=== PATIENT | female | born 1985 | race Caucasian/White ===

== ENCOUNTER 2023-12-05 20:47 | Outpatient (REF) | payer SELFPAY ==
[2023-12-10 15:08] LABS: Age Gdln ACOG Testing Note (.); HPV Aptima Negative (Negative); IGP, Aptima HPV, rfx 16/18,45 Note (.)
== END 2023-12-05 20:48 | disposition home or self-care (01) ==
LOC: LAB 20:47
PROVIDERS: PCP Obstetrics & Gynecology; Visit Provider Obstetrics & Gynecology
DX: Z01.419 Encounter for gynecological examination (general) (routine) without abnormal findings (principal)
CPT/HCPCS: 87624; G0145

== ENCOUNTER 2024-09-08 09:47 | Outpatient (OUT) | payer MEDICAID, SELFPAY ==
--- OUTSIDE RECORDS SUMMARY | 2024-09-08 10:03 | XMS_ITS | CCD ---
Author Organization [facility] Care Team Providers Care Demand Planning Analyst Name Role Phone PHYSICIAN, DEFAULT Unavailable Unavailable PHYSICIAN, DEFAULT Unavailable Unavailable Ozcan, Safinaz Tulin Unavailable Unavailable Deborah, Lacie Unavailable Unavailable UNKNOWN Unavailable Unavailable Ozcan, Safinaz Tulin Unavailable Unavailable Deborah, Lacie Unavailable Unavailable UNKNOWN Unavailable Unavailable Ozcan, Safinaz Tulin Unavailable Unavailable Deborah, Lacie Unavailable Unavailable UNKNOWN Unavailable Unavailable Lazebnik, Adrian Unavailable Unavailable Deborah, Lacie Unavailable Unavailable UNKNOWN Unavailable Unavailable Lazebnik, Adrian Unavailable Unavailable Deborah, Lacie Unavailable Unavailable UNKNOWN Unavailable Unavailable Lazebnik, Adrian Unavailable Unavailable Deborah, Lacie Unavailable Unavailable UNKNOWN Unavailable Unavailable ANA, DR KEENE Attending Unavailable REQUEST, NONE LISTED Primary Care Unavaila ble ANA, DR KEENE Admitting Unavailable West, Jassi Attending Unavailable West, Jassi Admitting Unavailable REQUEST, NONE LISTED Primary Care Unavaila ble Wil, Jassi Consulting Unavailable Wil, Jassi Attending Unavailable West, Jassi Admitting Unavailable REQUEST, DR NONE LISTED Primary Care Unavaila ble Wil, Jassi Consulting Unavailable ZIEBER, DR TERRANCE Lara Consulting Unavailable Wil, Jassi Attending Unavailable Wil, Jassi Admitting Unavailable West, Jassi Consulting Unavailable REQUEST, DR NONE LISTED Primary Care Unavaila ble Wil, Jassi Attending Unavailable West, Jassi Admitting Unavailable REQUEST, NONE LISTED Primary Care Unavaila ble Wil, Jassi Consulting Unavailable Wil, Jassi Attending Unavailable West, Jassi Admitting Unavailable West, Jassi Consulting Unavailable REQUEST, DR NONE LISTED Primary Care Unavaila ble Wil, Jassi Admitting Unavailable Wil, Jassi Consulting Unavailable REQUEST, DR NONE LISTED Primary Care Unavaila ble Wil, Jassi Attending Unavailable West, Jassi Admitting Unavailable West, Jassi Consulting Unavailable REQUEST, DR NONE LISTED Primary Care Unavaila ble Wil, Jassi Attending Unavailable West, Jassi Attending Unavailable West, Jassi Admitting Unavailable REQUEST, DR NONE LISTED Primary Care Unavaila ble Wil, Jassi Consulting Unavailable Wil, Jassi Consulting Unavailable DEBORAH ., DR MEDELLIN Admitting Unavailable REQUEST, DR NONE LISTED Primary Care Unavaila ble DEBORAH ., DR MEDELLIN Attending Unavailable DEBORAH ., DR MEDELLIN Consulting Unavailable DEBORAH ., DR MEDELLIN Admitting Unavailable DEBORAH ., DR MEDELLIN Consulting Unavailable DEBORAH ., DR MEDELLIN Attending Unavailable REQUEST, DR NONE LISTED Primary Care Unavaila ble DEBORAH ., DR MEDELLIN Admitting Unavailable DEBORAH ., DR MEDELLIN Consulting Unavailable DEBORAH ., DR MEDELLIN Attending Unavailable REQUEST, DR NONE LISTED Primary Care Unavaila ble SHARPREID Consulting Unavailable GEMBUS, ANGELA Consulting Unavailable DEBORAH ., DR MEDELLIN Admitting Unavailable DEBORAH ., DR MEDELLIN Attending Unavailable REQUEST, NONE LISTED Primary Care Unavaila ble DEBORAH, LACIE Attending Unavailable DEBORAH, LACIE Attending Unavailable DEBORAH, LACIE Attending Unavailable Allergies Allergy Classification Reported Allergen(s) Allergy Type Date of Onset Reaction(s) Facility (1 source) Coconut extract Drug Allergy 10-14-2000 [facility] Repository (1 source) Codeine Drug Allergy 03-11-2014 [facility] Repository (1 source) Latex Drug allergy (disorder) 11-15-2011 [facility] Repository (1 source) Penicillins Drug allergy (disorder) 03-11-2014 [facility] Repository Problems Active Problems Problem Classification Problem Date Documented Date Episodic/Chronic Menstrual disorders (6 sources) Dysmenorrhea, unspecified; Translations: [Excessive and frequent menstruation with regular cycle] Onset: 09-15-2022 Chronic Other complications of ; puerperium affecting management of mother (1 source) Maternal care for (suspected) abnormality and damage, unspecified, not applicable or unspecified; Translations: [Maternal care for abnormality and damage, unsp, unsp] Onset: 07-31-2018 Episodic Other complications of (1 source) Obesity complicating , third trimester; Translations: [Obesity complicating , third trimester] Onset: 07-10-2018 Chronic Other complications of (1 source) Maternal care for other known or suspected poor growth, third trimester, not applicable or unspecified; Translations: [Matern care for oth or susp poor fetl grth, third tri, unsp] Onset: 07-31-2018 Episodic Other complications of (1 source) Supervision of with other poor reproductive or obstetric history, third trimester; Translations: [Suprvsn of preg w poor reprodctv or obstet hx, third tri] Onset: 07-03-2018 Episodic Other nervous system disorders (4 sources) Other acute postprocedural pain; Translations: [OTHER ACUTE POSTPROCEDURAL PAIN] Onset: 11-30-2022 Episodic Other nutritional; endocrine; and metabolic disorders (1 source) Other obesity due to excess calories; Translations: [Other obesity due to excess calories] Onset: 07-10-2018 Chronic Unclassified (4 sources) 34 weeks gestation of ; Translations: [32 weeks gestation of ] Onset: 07-03-2018 Unclassified (1 source) CONTACT W/AND (SUSP) EXPOS COVID-19; Translations: [CONTACT W/AND (SUSP) EXPOS COVID-19] Onset: 09-15-2022 Past or Other Problems Problem Classification Problem Date Documented Da te Episodic/Chronic Abdominal pain (1 source) Pelvic and perineal pain; Translations: [PELVIC AND PERINEAL PAIN] Onset: 2 Episodic Deficiency and other anemia (1 source) Iron deficiency anemia, unspecified; Translations: [IRON DEFICIENCY ANEMIA UNSPECIFIED] Onset: 2 Episodic Ovarian cyst (1 source) Other ovarian cyst, right side; Translations: [OTHER OVARIAN CYST RIGHT SIDE] Onset: 2 Episodic Phlebitis; thrombophlebitis and thromboembolism (8 sources) Phlebitis and thrombophlebitis of superficial vessels of right lower extremity; Translations: [Phlebitis and thrombophlebitis of superficial vessels of left lower extremity] Onset: 2 Episodic Unclassified (5 sources) Encounter for suspected problem with growth ruled out; Translations: [Encounter for screening, unspecified] Onset: 8 Episodic Unclassified (1 source) 30 weeks gestation of / Z3A.30(ICD-10) Onset: 8 Unclassified (1 source) Encounter for suspected placental problem ruled out / Z03.72(ICD-10) Onset: 8 Unclassified (1 source) 29 weeks gestation of / Z3A.29(ICD-10) Onset: 8 Unclassified (1 source) Matern care for oth or susp poor fetl grth, unsp tri, unsp / O36.5990(ICD-10) Onset: 8 Unclassified (1 source) Suprvsn of preg w poor reprodctv or obstet history, uns tri / O09.299(ICD-10) Onset: 8 Varicose veins of lower extremity (4 sources) Varicose veins of bilateral lower extremities with pain; Translations: [VARICOSE VNS JINNY LOW EXTREM W/PAIN] Onset: 2 Episodic Results Test Name Value Interpretation Reference Range Facility CBC AUTO DIFFon 09-17-2022 BASO # 0.0 103/ul Normal 0.0-0.1 [facility] Comment on above: Performed By: #### C BC ####[facility] [address] [place] [address]Dr. Zohaib Nichole Basophils/100 WBC (Bld) 0.3 % Normal 0.2-2.0 [facility] Comment on above: Performed By: #### C BC ####[facility] [address] [place], [place] [address]Dr. Zohaib Nichole EO # 0.2 103/ul Normal 0.0-0.7 [facility] Comment on above: Performed By: #### C BC ####[facility] [address] [place] [address]Dr. Zohaib Nichole Eosinophils/100 WBC (Bld) 2.5 % Normal 0.9-7.0 [facility] Comment on above: Performed By: #### C BC ####[facility] [address] [place] [address]Dr. Zohaib Nichole Erythrocyte distribution width (RBC) [Ratio] 13.2 % Normal 11.0-15.0 [facility] Comment on above: Performed By: #### C BC ####[facility] [address] [place] [address]Dr. Zohaib Nichole Hematocrit (Bld) [Volume fraction] 39.9 % Normal 36.0-48.0 [facility] Comment on above: Performed By: #### C BC ####[facility] [address] [place] [address]Dr. Zohaib Nichole Hemoglobin (Bld) [Mass/Vol] 13.1 g/dL Normal 12.0-16.0 [facility] Comment on above: Performed By: #### C BC ####[facility] [address] [place] [address]Dr. Zohaib Nichole IG # 0.02 10e3/ul Normal 0.00-0.03 [facility] Comment on above: Performed By: #### C BC ####[facility] [address] [place], [place] [address]Dr. Zohaib Dionisio IG % 0.3 % Normal 0.0-0.5 [facility] Comment on above: Performed By: #### C BC ####[facility] [address] [place], [place] [address]Dr. Zohaib Nichole LYMPH # 2.0 103/ul Normal 1.2-3.8 [facility] Comment on above: Performed By: #### C BC ####[facility] [address] [place], [place] [address]Dr. Irenetavo Nichole Lymphocytes/100 WBC (Bld) 33.6 % Normal 20.5-60.0 [facility] Comment on above: Performed By: #### C BC ####[facility] [address] [place], [place] [address]Dr. Irenetavo Nichole MANUAL DIFF REQ NO Normal [facility] Comment on above: Performed By: #### C BC ####[facility] [address] [place], [place] [address]Dr. Zohaib Dionisio MCH (RBC) [Entitic mass] 27.5 pg Normal 26.7-34.0 [facility] Comment on above: Performed By: #### C BC ####[facility] [address] [place], [place] [address]Dr. Zohaib Dionisio MCHC (RBC) [Mass/Vol] 32.8 g/dL Normal 29.9-35.2 [facility] Comment on above: Performed By: #### C BC ####[facility] [address] [place], [place] [address]Dr. Zohaib Nichole MCV (RBC) [Entitic vol] 83.6 fL Normal 81.0-99.0 [facility] Comment on above: Performed By: #### C BC ####[facility] [address] [place], [place] [address]Dr. Zohaib Nichole MONO # 0.5 103/ul Normal 0.3-0.8 [facility] Comment on above: Performed By: #### C BC ####[facility] [address] [place], [place] [address]Dr. Zohaib Dionisio Monocytes/100 WBC (Bld) 7.6 % Normal 1.7-12.0 [facility] Comment on above: Performed By: #### C BC ####[facility] [address] [place], [place] [address]Dr. Zohaib Nichole NEUT # 3.3 103/ul Normal 1.4-6.5 [facility] Comment on above: Performed By: #### C BC ####[facility] [address] [place], [place] [address]Dr. Zohaib Dionisio Neutrophils/100 WBC (Bld) 55.7 % Normal 43.0-75.0 [facility] Comment on above: Performed By: #### C BC ####[facility] [address] [place], [place] [address]Dr. Zohaib Dionisio Platelet mean volume (Bld) [Entitic vol] 10.3 fL Normal 9.5-13.5 [facility] Comment on above: Performed By: #### C BC ####[facility] [address] [place], [place] [address]Dr. Zohaib Dioniiso PLT 265 103/ul Normal 150-450 [facility] Comment on above: Performed By: #### C BC ####[facility] [address] [place], [place] [address]Dr. Irenetavo Dionisio RBC 4.77 106/ul Normal 4.20-5.40 [facility] Comment on above: Performed By: #### C BC ####[facility] [address] [place], [place] [address]Dr. Zohaib Nichole WBC 6.0 103/ul Normal 4.0-11.0 [facility] Comment on above: Performed By: #### C BC ####[facility] [address] [place], [place] [address]DvFederica Nichole PREG QUANT HCGon 09-17-2022 HCG QUANT <1 Normal [facility] Comment on above: Performed By: #### P REGQNT ####[facility] [address] [place], [place] [address]Ut. Zohaib Nichole HCG RANGE SEE BELOW Normal [facility] Comment on above: Result Comment: 5-50 0.2-1 WEEK 50-500 1-2 WEEKS 100-5,000 2-3 WEEKS 500-10,000 3-4 WEEKS 1,000-50,000 4-5 WEEKS 10,000-100,000 5-6 WEEKS 15,000-200,000 6-8 WEEKS 10,000-100,000 2-3 MONTHS Performed By: #### P REGQNT ####[facility] [address] [place], [place] [address]Yy. Zohaib Nichole Covid-19 PCR (CVDTB)on 08-15 SARS-CoV-2 (COVID-19) RNA YURI+probe Ql (Unsp spec) Not detected Normal NOT DETECTED [facility] Comment on above: Result Comment: This test is not yet approved or cleared by the [place] FDA. When there are no FDA-approved or cleared tests available, and other criteria are met, FDA can make tests available under an emergency access mechanism called an Emergency Use Authorization (EUA). The EUA for this test is supported by the Supervisor [employer] of Health and Human Service's (HHS's) declaration that circumstances exist to justify the emergency use of in vitro diagnostics for the detection and/or diagnosis of the virus that causes COVID-19. This EUA will remain in effect (meaning this test can be used) for the duration of the COVID-19 declaration justifying emergency of IVDs, unless it is terminated or revoked by FDA (after which the test may no longer be used). When diagnostic testing is negative, the possibility of a false negative should be considered in the context of a patient's recent exposures and the presence of clinical signs and symptoms consistent with SARS-CoV-2. Performed By: #### C VDTB #### [facility] [address] [place], [place] [address] Dr. Zohaib Nichole TYPE AND SCREENon 09-11-2022 TYPE AND SCREEN Negative Normal [facility] Comment on above: Performed By: #### T NS ####[facility] [address] [place], [place] [address]JmDr. 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 Admission #: [id number] Family : Order #: [id number] CLICK HERE TO VIEW EXAM RADIOLOGY REPORT PROCEDURE: VEIN CENTER INJECTION SCLEROSING SOLUTION MULTIPLE VEINS SAME COMPARISON: VC INJ SCL FRANCO OUTSIDE BARREL LATHE OPERATOR VEINS, 08/07/2022. INDICATIONS: Pain co-occurrent and due to varicose veins of bilateral legs I83.813 PROCEDURE NOTE: The risks and benefits of the procedure were explained at length to the patient and informed written consent was obtained. Raghavendra Acevedo was present and assisted. The procedure was performed under sterile technique. The patient's leg was wrapped with Coban and postprocedural verbal and written instructions provided. SCLEROSANT: 4 cc, 0.5% polidocanol VEIN(S) INJECTED: 29 veins in the left leg VISUALIZATION: Ultrasound was not used to visualize the sclerosant ANESTHESIA Supercooled air COMPLICATIONS: None CONCLUSION: 1. Technically successful sclerotherapy as described Dictated by: Jassi Rosario MD on 08/14/2022 at 09:25 Approved by: Jassi Rosario MD on 08/14/2022 at 09:26 Normal [facility] VC INJ SCL FRANCO OUTSIDE BARREL LATHE OPERATOR VEINSon 1 VC INJ SCL FRANCO OUTSIDE BARREL LATHE OPERATOR VEINS Patient: REID HANDLEY Exam Date: 08/07/2022 : 1985 Gender:F Ordering : DR JASSI ROSARIO M.D. Admission #: [id number] Family : Order #: [id number] CLICK HERE TO VIEW EXAM RADIOLOGY REPORT PROCEDURE: VEIN CENTER INJECTION SCLEROSING SOLUTION MULTIPLE VEINS SAME COMPARISON: None. INDICATIONS: Pain co-occurrent and due to varicose veins of bilateral legs I83.813 PROCEDURE NOTE: The risks and benefits of the procedure were explained at length to the patient and informed written consent was obtained. Raghavendra Acevedo was present and assisted. The procedure was performed under sterile technique. The patient's leg was wrapped with Coban and postprocedural verbal and written instructions provided. SCLEROSANT: 4 cc, 0.5% polidocanol VEIN(S) INJECTED: 22 veins in the left leg VISUALIZATION: Ultrasound was not used to visualize the sclerosant ANESTHESIA Supercooled air COMPLICATIONS: None CONCLUSION: 1. Technically successful sclerotherapy as described Dictated by: Jassi Rosario MD on 08/07/2022 at 12:22 Approved by: Jassi Rosario MD on 08/07/2022 at 12:23 Normal [facility] VC CONSULT FOLLOWUPon 2021 VC CONSULT FOLLOWUP Patient: LANNY HANDLEY Exam Date: 08/03/2022 : 1985 Gender:F Ordering : DR JASSI ROSARIO M.D. Admission #: [id number] Family : Order #: [id number] CLICK HERE TO VIEW EXAM RADIOLOGY REPORT PROCEDURE: VEIN CENTER CONSULTATION FOLLOWUP VEIN CENTER - OFFICE VISIT FOLLOW UP COMPARISON: VC CONSULT FOLLOWUP, 07/10/2022. PROGRESS NOTES: The patient reports moderate pain of the right leg following intravenous laser ablation of the right great saphenous vein. The patient did take over the counter ibuprofen. The patient did wear her compression stocking. The patient has followed our recommendations to walk 20-30 minutes once or twice per day since the procedure. Physical exam demonstrates 3 areas of bruising along the medial right thigh knee and lower leg related to tumescent injection/procedure. Thrombosed right great saphenous vein can be palpated. There is an area of warmth along the medial knee/lower leg likely representing a mild thrombophlebitis. No areas of active ulceration. Review of the ultrasound performed the same day demonstrates occlusive thrombus extending throughout the treated right great saphenous vein with heat induced thrombus 3.6 cm from the saphenofemoral junction. The patient expressed a desire to proceed with treatment of reticular and spider veins. The patient would like to defer treatment of the right small saphenous vein. IMPRESSION: 1. Successful ablation of the right great saphenous vein 2. Persistent bilateral incompetent reticular and spider veins PLAN: Injection sclerotherapy Nurse notes, history and physical were reviewed and confirmed, see attached forms. The nurse was present throughout the physical exam and consultation Dictated by: Jassi Rosario MD on 08/03/2022 at 09:49 Approved by: Jassi Rosario MD on 08/03/2022 at 10:06 Normal [facility] VC EXT VENOUS RT LIMITEDon 1 VC EXT VENOUS RT LIMITED Patient: REID HANDLEY Exam Date: 08/03/2022 : 1985 Gender:F Ordering : DR JASSI ROSARIO M.D. Admission #: [id number] Family : Order #: [id number] CLICK HERE TO VIEW EXAM RADIOLOGY REPORT PROCEDURE: VEIN CENTER EXTREMITY VENOUS RIGHT LIMITED COMPARISON: None. INDICATIONS: Phlebitis of superficial veins of lower extremity I80.01 TECHNIQUE: Lower extremity omer scale and Duplex Doppler evaluation of the deep venous system from the inguinal ligament through the calf veins. FINDINGS: REGION: Right lower extremity. THROMBI: Negative for DVT. Heat induced thrombus visualized 3.6 cm from SFJ. The heat induced thrombus extends from groin to prox calf and is patent at mid calf, below the area of insertion. COMPRESSIBILITY: Non-compressible segments. FLOW: Areas of no flow. *Exam performed in accordance with [facility] practice guidelines- Peripheral venous ultrasound, January 07, 2010. CONCLUSION: Post ablation occlusion of the right great saphenous vein with heat induced thrombus 3.6 cm from the saphenofemoral junction Dictated by: Jassi Rosario MD on 08/03/2022 at 09:47 Approved by: Jassi Rosario MD on 08/03/2022 at 09:48 Normal [facility] CBC AUTO DIFFon 08-02-2022 BASO # 0.0 103/ul Normal 0.0-0.1 [facility] Comment on above: Performed By: #### C BC #### [facility] [address] [address] [address] Zohaib Nichole Basophils/100 WBC (Bld) 0.4 % Normal 0.2-2.0 [facility] Comment on above: Performed By: #### C BC #### [facility] [address] [place] [address] Dr. Zohaib Nichole EO # 0.5 103/ul Normal 0.0-0.7 [facility] Comment on above: Performed By: #### C BC #### [facility] [address] [place] [address] Dr. Zohaib Nichole Eosinophils/100 WBC (Bld) 6.2 % Normal 0.9-7.0 [facility] Comment on above: Performed By: #### C BC #### [facility] [address] [place] [address] Dr. Zohaib Nichole Erythrocyte distribution width (RBC) [Ratio] 13.6 % Normal 11.0-15.0 [facility] Comment on above: Performed By: #### C BC #### [facility] [address] [place] [address] Dr. Zohaib Nichole Hematocrit (Bld) [Volume fraction] 39.9 % Normal 36.0-48.0 [facility] Comment on above: Performed By: #### C BC #### [facility] [address] [place] [address] Dr. Zohaib Nichole Hemoglobin (Bld) [Mass/Vol] 12.9 g/dL Normal 12.0-16.0 [facility] Comment on above: Performed By: #### C BC #### [facility] [address] [place] [address] Dr. Zohaib Nichole IG # 0.04 10e3/ul Critically high 0.00-0.03 [facility] Comment on above: Performed By: #### C BC #### [facility] [address] [place] [address] Dr. Zohaib Nichole IG % 0.5 % Normal 0.0-0.5 [facility] Comment on above: Performed By: #### C BC #### [facility] [address] [place] [address] Dr. Zohaib Nichole LYMPH # 2.2 103/ul Normal 1.2-3.8 [facility] Comment on above: Performed By: #### C BC #### [facility] [address] [place] [address] Dr. Zohaib Nichole Lymphocytes/100 WBC (Bld) 26.2 % Normal 20.5-60.0 [facility] Comment on above: Performed By: #### C BC #### [facility] [address] [place] [address] Dr. Zohaib Nichole MANUAL DIFF REQ NO Normal [facility] Comment on above: Performed By: #### C BC #### [facility] [address] [place] [address] Dr. Zohaib Nichole MCH (RBC) [Entitic mass] 27.5 pg Normal 26.7-34.0 [facility] Comment on above: Performed By: #### C BC #### [facility] [address] [place] [address] Dr. Zohaib Nichole MCHC (RBC) [Mass/Vol] 32.3 g/dL Normal 29.9-35.2 [facility] Comment on above: Performed By: #### C BC #### [facility] [address] [place] [address] Dr. Zohaib Nichole MCV (RBC) [Entitic vol] 85.1 fL Normal 81.0-99.0 [facility] Comment on above: Performed By: #### C BC #### [facility] [address] [place] [address] Dr. Zohaib Nichole MONO # 0.5 103/ul Normal 0.3-0.8 [facility] Comment on above: Performed By: #### C BC #### [facility] [address] [place] [address] Dr. Zohaib Nichole Monocytes/100 WBC (Bld) 6.3 % Normal 1.7-12.0 [facility] Comment on above: Performed By: #### C BC #### [facility] [address] [place] [address] Dr. Zohaib Nichole NEUT # 5.1 103/ul Normal 1.4-6.5 [facility] Comment on above: Performed By: #### C BC #### [facility] [address] [place] [address] Dr. Zohaib Nichole Neutrophils/100 WBC (Bld) 60.4 % Normal 43.0-75.0 [facility] Comment on above: Performed By: #### C BC #### [facility] [address] [address] [address] Zohaib Nichole Platelet mean volume (Bld) [Entitic vol] 10.5 fL Normal 9.5-13.5 [facility] Comment on above: Performed By: #### C BC #### [facility] [address] [address] [address] Zohaib Nichole PLT 256 103/ul Normal 150-450 [facility] Comment on above: Performed By: #### C BC #### [facility] [address] [address] [address] Zohaib Nichole RBC 4.69 106/ul Normal 4.20-5.40 [facility] Comment on above: Performed By: #### C BC #### [facility] [address] [address] [address] Zohaib Nichole WBC 8.5 103/ul Normal 4.0-11.0 [facility] Comment on above: Performed By: #### C BC #### [facility] [address] [address] [address] Zohaib Nichole GLYCOHEMOGLOBIN A1Con 2021 ADA RECOMMENDATION SEE BELOW Normal [facility] Comment on above: Result Comment: ADA RECOMMENDED LIMIT 4.0 - 6.0 ADA THERAPEUTIC TARGET < 7.0 ACTION SUGGESTED > 7.0 Performed By: #### A 1C ####[facility] [address] [address]Dr. Zohaib Nichole Glucose [Mass/Vol] 105 mg/dL Normal [facility] Comment on above: Performed By: #### A 1C ####[facility] [address] [id number]. Zohaib Nichole HbA1c (Bld) [Mass fraction] 5.3 % Normal 4.5-6.2 [facility] Comment on above: Performed By: #### A 1C ####[facility] [address] [address]Dr. Zohaib Nichole PREG QUANT HCGon 08-02-2022 HCG QUANT <1 Normal [facility] Comment on above: Performed By: #### T SH, PREGQNT #### [facility] [address] [place] [address] Dr. Zohaib Nichole HCG RANGE SEE BELOW Normal [facility] Comment on above: Result Comment: 5-50 0.2-1 WEEK 50-500 1-2 WEEKS 100-5,000 2-3 WEEKS 500-10,000 3-4 WEEKS 1,000-50,000 4-5 WEEKS 10,000-100,000 5-6 WEEKS 15,000-200,000 6-8 WEEKS 10,000-100,000 2-3 MONTHS Performed By: #### T SH, PREGQNT #### [facility] [address] [place] [address] Dr. Zohaib Nichole PROTIMEon 08-02-2022 INR Coag (PPP) [Relative time] 0.94 {INR} Normal [facility] Comment on above: Performed By: #### P T, PTT #### [facility] [address] [place] [address] Dr. Zohaib Nichole INR GUIDELINES SEE BELOW Normal [facility] Comment on above: Result Comment: JORJE RED INR: 2.0 - 3.0 CONDITIONS NOT LISTED BELOW 2.5 - 3.5 FOR PROSTHETIC HEART VALVE REPLACEMENT 2.5 - 3.5 RECURRENT THROMBOSIS Performed By: #### P T, PTT #### [facility] [address] [place] [address] Dr. Zohaib Nichole PT Coag (PPP) [Time] 10.2 s Normal 9.0-11.6 [facility] Comment on above: Performed By: #### P T, PTT #### [facility] [address] [place] [address] Dr. Zohaib Nichole PTTon 08-02-2022 aPTT Coag (Bld) [Time] 26.1 s Normal 22.3-36.2 [facility] Comment on above: Performed By: #### P T, PTT #### [facility] [address] [place], [place] [address] Dr. Zohaib Nichole TSHon 08-02-2022 TSH 1.359 uIU/mL Normal 0.358-3.740 [facility] Comment on above: Performed By: #### T SH, PREGQNT #### [facility] [address] [place], [place] [address] Dr. Zohaib Nichole US PELVIS AND TRANSVAGon US PELVIS AND TRANSVAG EXAMINATION: US PELVIS AND TRANSVAG HISTORY: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 antibodies. This was not drawn today. All questions were addressed. Patient and her express understanding. Please do not hesitate to call my office if you have any questions.Thank you for the referralFlorence Gauthier [facility] attending End of Encounter MedsCranberry CAPS;Therapy: (Recorded:[id number]) to RecordedPrenatal TABS;Therapy: (Recorded:[id number]) to RecordedStool Softener CAPS;Therapy: (Recorded:[id number]) to Recorded Signatures Electronically signed by : Devora Gauthier MD; Jun 20 2018 4:14PM EST (Author) Normal [facility] [employer] - Office Visiton [employer] - Office Visit No report was sent Normal [facility] Encounters Encounter Date Encounter Type Care Provider Facility Start: 01-02-2024 End: 01-02-2024 ambulatory LACIE CABRERA Not Available Start: 12-05-2023 End: 12-05-2023 ambulatory LACIE CABRERA Not Available Start: 11-07-2023 End: 11-07-2023 ambulatory LACIE CABRERA Not Available Start: 11-30-2022 End: 12-22-[address] LACIE CABRERA . Facility:[facility] Start: 09-17-2022 End: 09-17-[address] LACIE CABRERA . Facility:[facility] Start: 09-15-2022 Encounter for preprocedural laboratory examination DR LACIE CABRERA . [facility] Start: 09-11-2022 End: 09-12-[address] LACIE CABRERA . Facility:[facility] Start: 09-11-2022 End: 09-12-2022 Encounter for preprocedural laboratory examination DR LACIE CABRERA . Facility:[facility] Start: 08-22-2022 End: 08-23-2022 ambulatory Jassi Rosario Facility:[facility] Start: 08-15-[address] JASSI PEREZ Facilit y:[facility] Start: 08-14-2022 End: 08-15-2022 ambulatory Jassi oRsario Facility:[facility] Start: 08-07-2022 End: 08-08-2022 ambulatory Jassi West Facility:[facility] Start: 08-06-2022 Encounter for genera l adult medical examination without abnormal findings DR LACIE CABRERA . [facility] Start: 08-03-2022 End: 08-04-2022 ambulatory Jassi West Facility:[facility] Start: 08-02-2022 End: 08-03-2022 ambulatory Jassi West Facility:[facility] Start: 08-02-2022 End: 08-03-2022 Encounter for general adult medical examination without abnormal findings Jassi Rosario Facility:[facility] Start: 07-30-2022 End: 07-31-2022 ambulatory Jassi Rosario Facility:[facility] Start: 07-10-2022 End: 07-11-2022 ambulatory Jassi Rosario Facility:[facility] Start: 07-05-2022 End: 07-06-2022 ambulatory Jassi Rosario Facility:[facility] Start: 02-22-2022 End: 02-23-2022 ambulatory Jassi Rosario Facility:[facility] Start: 07-31-2018 Patient encounter Adrian Lazebnik Faci lity:[facility] Alberto Melo Start: 07-28-2018 End: 07-29-2018 Patient encounter DEFAULT PHYSICIAN Facility:[facility] Start: 07-24-2018 Patient encounter Adrian Lazebnik Faci lity:[facility] Alberto Melo Start: 07-10-2018 Patient encounter Adrian Lazebnik Faci lity:[facility] Start: 07-03-2018 Patient encounter Devora mccarthy Facility:[facility] Start: 06-26-2018 Patient encounter Devora Lord n Facility:[facility] Start: 06-19-2018 Patient encounter Devora Melissaca n Facility:[facility] Payers Date Payer Category Payer Unknown [id number] 1984 Unknown [id number] 2.16.8 [id number] 1984 Unknown [id number] 2.16. 840.1.080897.3.579.2.356 1984 Unknown [id number] 2.16. 840.1.249216.3.579.2.356 1984 Unknown [id number] 2.16. 840.1.524314.3.579.2.356 1984 Unknown [id number] 2.16. 840.1.439492.3.579.2.356 1984 Unknown [id number] 2.16. 840.1.799985.3.579.2.356 1984 Unknown [id number] 2.16. 840.1.880358.3.579.2.356 1984 Unknown [id number] 2.16.84 0.1.674320.3.579.2.593 1984 Unknown [id number] 2.16.84 0.1.947708.3.579.2.593 1984 Unknown [id number] 2.16.84 0.1.220800.3.579.2.593 1984 Unknown [id number] 2.16.84 0.1.502435.3.579.2.593 1984 Unknown [id number] 2.16.84 0.1.755455.3.579.2.593 1984 Unknown [id number] 2.16.84 0.1.733414.3.579.2.593 1984 Unknown [id number] 2.16.84 0.1.029901.3.579.2.593 1984 Unknown [id number] 2.16.84 0.1.792078.3.579.2.593 1984 Unknown [id number] 2.16.84 0.1.734870.3.579.2.593 1984 Unknown [id number] 2.16.84 0.1.124618.3.579.2.593 1984 Unknown [id number] 2.16.84 0.1.472141.3.579.2.593 1984 Unknown [id number] 2.16.84 0.1.717671.3.579.2.593 1984 Unknown [id number] 2.16.84 0.1.353534.3.579.2.593 1984 Unknown [id number] 2.16.84 0.1.966622.3.579.2.1259 1984 Unknown [id number] 2.16.84 0.1.777073.3.579.2.1259 1984 Unknown [id number] 2.16.84 0.1.420633.3.579.2.1259 1959 Self-pay [id number] 1959 Unknown [id number] 1959 Unknown [id number] Unknown Clinical Note 09-17-2022 Note Date & Type Note Facility 09-17-2022 Note OPERATIVE NOTE OPERATION DATE: 09/17/2022 PROCEDURE: vNOTES assisted hysterectomy. PREOPERATIVE DIAGNOSIS: Menorrhagia, dysmenorrhea. POSTOPERATIVE DIAGNOSIS: Menorrhagia, dysmenorrhea. ANESTHESIA: General. SURGEON: Lacie Cabrera D.O. BUSH HOG OPERATOR: EDWIN Forte URINE OUTPUT: Yellow and clear. BLOOD LOSS: 50 mL. SPECIMEN: Uterus and tubes. FINDINGS: Normal appearing ovaries, slightly enlarged uterus, normal appearing tubes. PROCEDURE: Patient was brought back to the operating room where she was given general anesthesia. She was placed in the dorsal lithotomy position, after being prepped and draped in a sterile fashion. A Galicia catheter was placed. A weight speculum was placed posterior in the vagina. The cervix was grasped anteriorly and posteriorly with two single tooth tenaculums and placed on traction. A solution of Marcaine, lidocaine and epinephrine and saline was liberally infiltrated into the cervicovaginal junction. The knife was then used to circumscribe the cervicovaginal junction and the posterior cul-de-sac was sharply entered without difficulty. The long weighted duck tail speculum was then placed and the peritoneum was tacked to the vaginal epithelium. We then turned our attention to the uterosacral ligaments which were bilaterally cross clamped, transected and suture ligated, and they were held with hemostats. Attention was then turned to the anterior compartment, where the cervicovaginal junction was similarly divided and the bladder was then sharply and bluntly dissected off the cervix and lower uterine segment, and the anterior cul-de-sac was sharply entered. The epithelium was tacked to the peritoneum. Lateral attachments of the uterus were secured with Osiel clamps and suture ligated. The retractors were then removed and were placed by the path inner ring anteriorly followed by posteriorly. Once the ring was seated, the cap was placed and the laparoscopic ports were placed through this cap and the gas was allowed to insufflate the pelvis. A GynLap was placed posteriorly to facilitate mobilization of the bowel and control bleeding. This was later retrieved. The LigaSure device was used to secure the lateral attachments of the uterus on the left side, including the cardinal ligaments and the uterine vasculature, once the utero-ovarian ligament was reached. We turned attention to the right side, where the LigaSure device was used to fully detach the uterus from the pelvic side wall. The ureters were seen visually; before, during and after the pedicles were created. The ureters were bilaterally in normal locations, peristalsing. On the right side, the fallopian tube was easily divided away from the ovary and removed from the field. The left sided ovary was normal and the tube was left attached to the uterus, and the fimbriated end detached from the ovary. The uterus, both fallopian tubes were removed from the field. The GynLap was also removed from the field. The inner ring and gel ports cap were removed and the vaginal retractors were replaced. Lateral figure of eight sutures were placed bilaterally where bleeding occurred behind the ring and no further sutures were needed. The colpopexy was then carried out, passing a stitch posterior to the vaginal wall, capturing the left uterosacral ligament, going across the posterior peritoneum to the right uterosacral ligament and exiting out the vaginal wall posteriorly. The vaginal cuff was then closed in a single running/locking stitch, using O Monocryl and the uterosacral ligaments were cut. Once the vaginal cuff was fully closed, the uterosacral colpopexy stitch was then tied down tightly, elevating the vaginal cuff to the uterosacral ligaments in a satisfactory manner. The Galicia catheter was removed and the patient was awakened and taken recovery in excellent condition. Sponge, lap, needle counts correct x2. [facility] Summary Purpose Family History No Family History Records FoundNo Family History Records FoundNo Family History Records FoundNo Family History Records FoundNo Family History Records Found Advance Directives No Advanced Directives Records FoundNo Advanced Directives Records FoundNo Advanced Directives Records FoundNo Advanced Directives Records FoundNo Advanced Directives Records Found Additional Source Comments INFORMATION SOURCE (unrecogn ized section and content) DATE CREATED AUTHOR 06/30/2018 [employer] DATE CREATED AUTHOR AUTHOR'S ORGANIZ ATION 08/30/2018 [facility] DATE CREATED AUTHOR AUTHOR'S ORGANIZ ATION 09/12/2018 [facility] DATE CREATED AUTHOR AUTHOR'S ORGANIZ ATION [facility] DATE CREATED AUTHOR AUTHOR'S ORGANIZ ATION 01/03/2024 [facility] FOR RECORDS PERTAINING TO PATIENTS WHO ARE OR HAVE BEEN ENROLLED IN A CHEMICAL DEPENDENCY/SUBSTANCEABUSE PROGRAM, SOME INFORMATION MAY BE OMITTED. This clinical summary was aggregated from multiple sources. Caution should be exercised in using it in the provision of clinical care. This summary normalizes information from multiple sources, and as a consequence, information in this document may materially change the coding, format and clinical context of patient data. In addition, data may be omitted in some cases. CLINICAL DECISIONS SHOULD BE BASED ON THE PRIMARY CLINICAL RECORDS. [facility] [employer] provides no warranty or guarantee of the accuracy or completeness of information in this document.
[2024-09-08 10:11] LABS: Hematocrit 40.3 % (36.0-48.0); Hemoglobin 13.2 g/dL (12.0-16.0); Mean Corpuscular HGB Conc 32.8 g/dL (29.9-35.2); Mean Corpuscular Hemoglobin 28.9 pg (26.7-34.0); Mean Corpuscular Volume 88.4 fL (81.0-99.0); Mean Platelet Volume 10.7 fL (9.5-13.5); Platelet Count 246 10^3/uL (150-450); Red Blood Count 4.56 10^6/uL (4.20-5.40); Red Cell Distribution Width 13.2 % (11.0-15.0); White Blood Count 4.9 10^3/uL (4.0-11.0)
[2024-09-08 11:49] LABS: Free T4 0.91 ng/dL (0.76-1.46)
[2024-09-08 13:38] LABS: Free T3 2.73 pg/mL (2.18-3.98); Thyroid Stimulating Hormone 1.604 uIU/mL (0.358-3.740)
[2024-09-09 04:08] LABS: Estradiol 49.6 pg/mL (.); FSH 8.1 mIU/mL (.); Progesterone 0.3 ng/mL (.); Testosterone 12 ng/dL (8-60); Triiodothyronine (T3) 102 ng/dL (71-180)
[2024-09-09 06:10] LABS: Homocyst(e)ine 7.2 umol/L (0.0-14.5)
[2024-09-09 16:10] LABS: Thyroglobulin Antibody <1.0 IU/mL (0.0-0.9); Thyroid Peroxidase (TPO) Ab 10 IU/mL (0-34)
[2024-09-13 20:08] LABS: Reverse T3, Serum 12.9 ng/dL (9.2-24.1)
[2024-09-17 03:09] LABS: Thyroglobulin (TG-RIA) 16 ng/mL (.)
== END 2024-09-08 09:48 | disposition home or self-care (01) ==
LOC: LAB 09:47
DX: E07.9 Disorder of thyroid, unspecified (principal); Z13.29 Encounter for screening for other suspected endocrine disorder; D51.0 Vitamin B12 deficiency anemia due to intrinsic factor deficiency; E55.9 Vitamin D deficiency, unspecified; E66.9 Obesity, unspecified; E66.3 Overweight; R53.83 Other fatigue; Z13.220 Encounter for screening for lipoid disorders; R79.9 Abnormal finding of blood chemistry, unspecified; Z79.899 Other long term (current) drug therapy; E34.50 Androgen insensitivity syndrome, unspecified; R74.8 Abnormal levels of other serum enzymes; E28.9 Ovarian dysfunction, unspecified; E31.9 Polyglandular dysfunction, unspecified; N95.9 Unspecified menopausal and perimenopausal disorder; E28.8 Other ovarian dysfunction; R73.09 Other abnormal glucose
CPT/HCPCS: 36415; 82306; 82627; 82670; 83001; 83090; 84144; 84270; 84403; 84432; 84436; 84439; 84443; 84480; 84481; 84482; 85027; 86376; 86800

== ENCOUNTER 2024-12-10 15:04 | Outpatient (REF) | payer MEDICAID, SELFPAY ==
--- OUTSIDE RECORDS SUMMARY | 2024-12-10 15:28 | XMS_ITS | CCD ---
Author Organization [facility] Care Team Providers Care Brakes Inspector Name Role Phone PHYSICIAN, DEFAULT Unavailable Unavailable [...] KEENE Admitting Unavailable West, Jassi Attending Unavailable Wil, Jassi Admitting Unavailable REQUEST, NONE LISTED Primary Care Unavaila ble Wil, Jassi Consulting Unavailable Wil, Jassi Attending Unavailable Wil, Jassi Admitting Unavailable REQUEST, NONE LISTED Primary Care Unavaila ble Wil, Jassi Consulting Unavailable ZIEBER, DR TERRANCE Lara Consulting Unavailable Wil, Jassi Attending Unavailable Wil, Jassi Admitting Unavailable West, Jassi Consulting Unavailable REQUEST, NONE LISTED Primary Care Unavaila ble Wil, Jassi Attending Unavailable West, Jassi Admitting Unavailable REQUEST, NONE LISTED Primary Care Unavaila ble Wil, Jassi Consulting Unavailable Wil, Jassi Attending Unavailable Wil, Jassi Admitting Unavailable Wil, Jassi Consulting Unavailable REQUEST, NONE LISTED Primary Care Unavaila ble Wil, Jassi Admitting Unavailable Wil, Jassi Consulting Unavailable REQUEST, NONE LISTED Primary Care Unavaila ble Wil, Jassi Attending Unavailable Wil, Jassi Admitting Unavailable Wil, Jassi Consulting Unavailable REQUEST, NONE LISTED Primary Care Unavaila ble Wil, Jassi Attending Unavailable West, Jassi Attending Unavailable Wil, Jassi Admitting Unavailable REQUEST, NONE LISTED Primary Care Unavaila ble Wil, Jassi Consulting Unavailable West, Jassi Consulting Unavailable DEBORAH ., DR MEDELLIN Admitting Unavailable REQUEST, DR NONE LISTED Primary Care Unavaila ble DEBORAH ., DR MEDELLIN Attending Unavailable DEBORAH ., DR MEDELLIN Consulting Unavailable DEBORAH ., DR MEDELLIN Admitting Unavailable DEBORAH ., DR MEDELLIN Consulting Unavailable DEBORAH ., DR MEDELLIN Attending Unavailable REQUEST, NONE LISTED Primary Care Unavaila ble DEBORAH ., DR MEDELLIN Admitting Unavailable DEBORAH ., DR MEDELLIN Consulting Unavailable DEBORAH ., DR MEDELLIN Attending Unavailable REQUEST, DR NONE LISTED Primary Care Unavaila ble SHARPTESS Consulting Unavailable GEMBUS, ANGELA Consulting Unavailable DEBORAH ., DR MEDELLIN Admitting Unavailable DEBORAH ., DR MEDELLIN Attending Unavailable REQUEST, NONE LISTED Primary Care Unavaila ble DEBORAH, LACIE Attending Unavailable DEBORAH, LACIE Attending Unavailable DEBORAH, LACIE Attending Unavailable Unavailable Primary Care Provider Unavailabl e Allergies Allergy Classification Reported Allergen(s) Allergy Type Date of Onset Reaction(s) Facility (1 source) Coconut extract Drug Allergy 10-14-[address] [facility] Repository (1 source) Codeine Drug Allergy 03-11-[address] [facility] Rep[facility] (1 source) Latex Drug allergy (disorder) 11-15-[address] [facility] Rep[facility] (1 source) Penicillins Drug allergy (disorder) 03-11-[address] [facility] Repository (1 source) Latex Allergy to substance 11-05-2023 Rash [facility] (1 source) Penicillin G Drug Allergy 11-05-2023 Rash [facility] Medications Current Medications Medication Drug Class(es) Dates Sig (Normalized) Sig (Original) phentermine hydrochloride 37.5 mg oral tablet (3 sources) Sympathomimetic Amine Anorectic Start: 11-22-2022 take 1 tablet by mouth before mealtime phentermine (Adipex-P) 37.5 MG tablet Indications: Encounter for weight management Take 1 tablet (37.5 mg) by mouth in the morning. Take before meals. 90 tablet 01/02/2024 Active Problems Active Problems Problem Classification Problem Date [...] preg w poor reprodctv or obstet history, unsp tri / O09.299(ICD-10) Onset: 8 Varicose veins of lower extremity (4 sources) Varicose veins of bilateral lower extremities with pain; Translations: [VARICOSE VNS JINNY LOW EXTREM W/PAIN] Onset: 2 Episodic Results Test Name Value Interpretation Reference Range Facility CBC AUTO DIFFon 09-17-2022 BASO # 0.0 103/ul Normal 0.0-0.1 [facility] Comment on above: Performed By: #### C BC ####[facility] [address] [place] [id number]. Zohaib Nichole Basophils/100 WBC (Bld) 0.3 % Normal 0.2-2.[address] [facility] Comment on above: Performed By: #### C BC ####[facility] [address] [place], [place] [address]KbFederica Nichole EO # 0.2 103/ul Normal 0.0-0.[address] [facility] Comment on above: Performed By: #### C BC ####[facility] [address] [place], [place] [address]Hz. Zohaib Nichole Eosinophils/100 WBC (Bld) 2.5 % Normal 0.9-7.[address] [facility] Comment on above: Performed By: #### C BC ####[facility] [address] [place] [address]Dr. Zohaib Nichole Erythrocyte distribution width (RBC) [Ratio] 13.2 % Normal 11.0-15.0 [facility] Comment on above: Performed By: #### C BC ####[facility] [address] [place], [place] [address]Dr. Zohaib Nichole Hematocrit (Bld) [Volume fraction] 39.9 % Normal 36.0-48.0 [facility] Comment on above: Performed By: #### C BC ####[facility] [address] [place], [place] [address]Dr. Zohaib Nichole Hemoglobin (Bld) [Mass/Vol] 13.1 g/dL Normal 12.0-16.0 [facility] Comment on above: Performed By: #### C BC ####[facility] [address] [place], [place] [address]Dr. Zohaib Nichole IG # 0.02 10e3/ul Normal 0.00-0.03 [facility] Comment on above: Performed By: #### C BC ####[facility] [address] [place], [place] [address]Dr. Zohaib Nichole IG % 0.3 % Normal 0.0-0.5 [facility] Comment on above: Performed By: #### C BC ####[facility] [address] [place], [place] [address]Dr. Zohaib Nichole LYMPH # 2.0 103/ul Normal 1.2-3.[address] [facility] Comment on above: Performed By: #### C BC ####[facility] [address] [place], [place] [address]Dr. Zohaib Nichole Lymphocytes/100 WBC (Bld) 33.6 % Normal 20.5-60.[address] [facility] Comment on above: Performed By: #### C BC ####[facility] [address] [place], [place] [address]Dr. Zohaib Nichole MANUAL DIFF REQ NO Normal [facility] Comment on above: Performed By: #### C BC ####[facility] [address] [place] [id number]. Zohaib Dionisio MCH (RBC) [Entitic mass] 27.5 pg Normal 26.7-34.[address] [facility] Comment on above: Performed By: #### C BC ####[facility] [address] [place] [id number]. Irenetavo Nichole MCHC (RBC) [Mass/Vol] 32.8 g/dL Normal 29.9-35.[address] [facility] Comment on above: Performed By: #### C BC ####[facility] [address] [place] [address]Dr. Zohaib Nichole MCV (RBC) [Entitic vol] 83.6 fL Normal 81.0-99.[address] [facility] Comment on above: Performed By: #### C BC ####[facility] [address] [place], [place] [address]Dr. Zohaib Nichole MONO # 0.5 103/ul Normal 0.3-0.[address] [facility] Comment on above: Performed By: #### C BC ####[facility] [address] [place], [place] [address]Dr. Zohaib Nichole Monocytes/100 WBC (Bld) 7.6 % Normal 1.7-12.[address] [facility] Comment on above: Performed By: #### C BC ####[facility] [address] [place], [place] [address]Dr. Zohaib Nichole NEUT # 3.3 103/ul Normal 1.4-6.[address] [facility] Comment on above: Performed By: #### C BC ####[facility] [address] [place], [place] [address]Dr. Zohaib Nichole Neutrophils/100 WBC (Bld) 55.7 % Normal 43.0-75.[address] [facility] Comment on above: Performed By: #### C BC ####[facility] [address] [place], [place] [address]Dr. Zohaib Nichole Platelet mean volume (Bld) [Entitic vol] 10.3 fL Normal 9.5-13.[address] [facility] Comment on above: Performed By: #### C BC ####[facility] [address] [place], [place] [address]Xr. Zohaib Nichole PLT 265 103/ul Normal 150-[address] [facility] Comment on above: Performed By: #### C BC ####[facility] [address] [place], [place] [address]Ke. Zohaib Nichole RBC 4.77 106/ul Normal 4.20-5.[address] [facility] Comment on above: Performed By: #### C BC ####[facility] [address] [place], [place] [address]Yd. Zohaib Nichole WBC 6.0 103/ul Normal 4.0-11.[address] [facility] Comment on above: Performed By: #### C BC ####[facility] [address] [place] [id number]. Zohaib Nichole PREG QUANT HCGon 09-17-2022 HCG QUANT <1 Normal [facility] Comment on above: Performed By: #### P REGQNT ####[facility] [address] [place], [place] [address]Yj. Zohaib Nichole HCG RANGE SEE BELOW Normal [facility] Comment on above: Result Comment: 5-50 0.2-1 WEEK 50-500 1-2 WEEKS 100-5,000 2-3 WEEKS 500-10,000 3-4 WEEKS 1,000-50,000 4-5 WEEKS 10,000-100,000 5-6 WEEKS 15,000-200,000 6-8 WEEKS 10,000-100,000 2-3 MONTHS Performed By: #### P REGQNT ####[facility] [address] [place] [address]Dr. Zohaib Nichole Covid-19 PCR [facility]on 08-15 SARS-CoV-2 (COVID-19) RNA YURI+probe Ql (Unsp spec) Not detected Normal NOT DETECTED [facility] Comment on above: Result Comment: This test is not yet approved or cleared by the [place] FDA. When there are no FDA-approved or cleared tests available, and other criteria are met, FDA can make tests available under an emergency access mechanism called an Emergency Use Authorization (EUA). The EUA for this test is supported by the Area Operations Director of Health and Human Service's (HHS's) declaration [...] SARS-CoV-2. Performed By: #### C VDTB #### [facility] [address] [place], [place] [address] Dr. Zohaib Nichole TYPE AND SCREENon 09-11-2022 TYPE AND SCREEN Negative Normal [facility] Comment on above: Performed By: #### T NS ####[facility] [address] [place], [place] [address]WgDr. 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 Admission #: [id number] Family : Order #: [id number] CLICK HERE TO VIEW EXAM RADIOLOGY REPORT PROCEDURE: VEIN CENTER INJECTION SCLEROSING SOLUTION MULTIPLE VEINS SAME COMPARISON: VC INJ SCL FRANCO REFINERY OPERATOR COKING VEINS, 08/07/2022. INDICATIONS: Pain co-occurrent and due [...] Jassi Rosario MD on 08/14/2022 at 09:26 [facility] VC INJ SCL FRANCO REFINERY OPERATOR COKING VEINSon 1 VC INJ SCL FRANCO REFINERY OPERATOR COKING VEINS Patient: TESS HANDLEY Exam Date: 08/07/2022 : 1985 Gender:F Ordering : DR JASSI ROSARIO M.D. Admission #: [id number] Family : Order #: [id number] CLICK HERE TO VIEW EXAM RADIOLOGY REPORT [...] Rosario MD on 08/07/2022 at 12:23 Normal [facility] VC CONSULT FOLLOWUPon 2021 VC CONSULT FOLLOWUP Patient: LANNY HANDLEY Exam Date: 08/03/2022 : 1985 Gender:F Ordering : DR JASSI ROSARIO M.D. Admission #: [id number] Family : Order #: [id number] CLICK HERE [...] Rosario MD on 08/03/2022 at 10:06 Normal [facility] VC EXT VENOUS RT LIMITEDon 1 VC EXT VENOUS RT LIMITED Patient: TESS HANDLEY Exam Date: 08/03/2022 : 1985 Gender:F Ordering : DR JASSI ROSARIO M.D. Admission #: [id number] Family : Order #: [id number] CLICK HERE TO VIEW EXAM RADIOLOGY REPORT [...] no flow. *Exam performed in accordance with AIUM practice guidelines- Peripheral venous ultrasound, January 07, 2010. 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 CBC AUTO DIFFon 08-02-2022 BASO # 0.0 103/ul Normal 0.0-0.1 [facility] Comment on above: Performed By: #### C BC #### [facility] [address] [place] [address] Dr. Zohaib Nichole Basophils/100 WBC (Bld) 0.4 % Normal 0.2-2.0 [facility] Comment on above: Performed By: #### C BC #### [facility] [address] [place] [address] Dr. Zohaib Nichole EO # 0.5 103/ul Normal 0.0-0.7 [facility] Comment on above: Performed By: #### C BC #### [facility] [address] [place] [address] Dr. Zohaib Nichole Eosinophils/100 WBC (Bld) 6.2 % Normal 0.9-7.0 [facility] Comment on above: Performed By: #### C BC #### [facility] [address] [place] [address] Dr. Zohaib Nichole Erythrocyte distribution width (RBC) [Ratio] 13.6 % Normal 11.0-15.0 [facility] Comment on above: Performed By: #### C BC #### [facility] [address] [place] [address] Dr. Zohaib Nichole Hematocrit (Bld) [Volume fraction] 39.9 % Normal 36.0-48.0 [facility] Comment on above: Performed By: #### C BC #### [facility] [address] [place] [address] Dr. Zohaib Nichole Hemoglobin (Bld) [Mass/Vol] 12.9 g/dL Normal 12.0-16.0 [facility] Comment on above: Performed By: #### C BC #### [facility] [address] [place] [address] Dr. Zohaib Nichole IG # 0.04 10e3/ul Critically high 0.00-0.03 [facility] Comment on above: Performed By: #### C BC #### [facility] [address] [place] [address] Dr. Zohaib Nichole IG % 0.5 % Normal 0.0-0.5 [facility] Comment on above: Performed By: #### C BC #### [facility] [address] [place] [address] Dr. Zohaib Nichole LYMPH # 2.2 103/ul Normal 1.2-3.8 [facility] Comment on above: Performed By: #### C BC #### [facility] [address] [place] [address] Dr. Zohaib Nichole Lymphocytes/100 WBC (Bld) 26.2 % Normal 20.5-60.0 [facility] Comment on above: Performed By: #### C BC #### [facility] [address] [place] [address] Dr. Zohaib Nichole MANUAL DIFF REQ NO Normal [facility] Comment on above: Performed By: #### C BC #### [facility] [address] [place] [address] Dr. Zohaib Nichole MCH (RBC) [Entitic mass] 27.5 pg Normal 26.7-34.0 [facility] Comment on above: Performed By: #### C BC #### [facility] [address] [place] [address] Dr. Zohaib Nichole MCHC (RBC) [Mass/Vol] 32.3 g/dL Normal 29.9-35.2 [facility] Comment on above: Performed By: #### C BC #### [facility] [address] [place] [address] Dr. Zohaib Nichole MCV (RBC) [Entitic vol] 85.1 fL Normal 81.0-99.0 [facility] Comment on above: Performed By: #### C BC #### [facility] [address] [place] [address] Dr. Zohaib Nichole MONO # 0.5 103/ul Normal 0.3-0.8 [facility] Comment on above: Performed By: #### C BC #### [facility] [address] [place] [address] Dr. Zohaib Nichole Monocytes/100 WBC (Bld) 6.3 % Normal 1.7-12.0 [facility] Comment on above: Performed By: #### C BC #### [facility] [address] [place] [address] Dr. Zohaib Nichole NEUT # 5.1 103/ul Normal 1.4-6.5 [facility] Comment on above: Performed By: #### C BC #### [facility] [address] [place] [address] Dr. Zohaib Nichole Neutrophils/100 WBC (Bld) 60.4 % Normal 43.0-75.0 [facility] Comment on above: Performed By: #### C BC #### [facility] [address] [place] [address] Dr. Zohaib Nichole Platelet mean volume (Bld) [Entitic vol] 10.5 fL Normal 9.5-13.5 [facility] Comment on above: Performed By: #### C BC #### [facility] [address] [place] [address] Dr. Zohaib Nichole PLT 256 103/ul Normal 150-450 [facility] Comment on above: Performed By: #### C BC #### [facility] [address] [place] [address] Dr. Zohaib Nichole RBC 4.69 106/ul Normal 4.20-5.40 [facility] Comment on above: Performed By: #### C BC #### [facility] [address] [place] [address] Dr. Zohaib Nichole WBC 8.5 103/ul Normal 4.0-11.0 [facility] Comment on above: Performed By: #### C BC #### [facility] [address] [place] [address] Dr. Zohaib Nichole GLYCOHEMOGLOBIN A1Con 2021 ADA RECOMMENDATION SEE BELOW Normal [facility] Comment on above: Result Comment: ADA RECOMMENDED LIMIT 4.0 - 6.0 ADA THERAPEUTIC TARGET < 7.0 ACTION SUGGESTED > 7.0 Performed By: #### A 1C ####[facility] [address] [place] [address]Dr. Zohaib Nichole Glucose [Mass/Vol] 105 mg/dL Normal [facility] Comment on above: Performed By: #### A 1C ####[facility] [address] [place] [address]Dr. Zohaib Nichole HbA1c (Bld) [Mass fraction] 5.3 % Normal 4.5-6.2 [facility] Comment on above: Performed By: #### A 1C ####[facility] [address] [place] [address]Dr. Zohaib Nichole PREG QUANT HCGon 08-02-2022 HCG QUANT <1 Normal [facility] Comment on above: Performed By: #### T SH, PREGQNT #### [facility] [address] [place] [address] [address] Zohaib Nichole HCG RANGE SEE BELOW Normal [facility] Comment on above: Result Comment: 5-50 0.2-1 WEEK 50-500 1-2 WEEKS 100-5,000 2-3 WEEKS 500-10,000 3-4 WEEKS 1,000-50,000 4-5 WEEKS 10,000-100,000 5-6 WEEKS 15,000-200,000 6-8 WEEKS 10,000-100,000 2-3 MONTHS Performed By: #### T SH, PREGQNT #### [facility] [address] [place] [address] [address] Zohaib Nichole PROTIMEon 08-02-2022 INR Coag (PPP) [Relative time] 0.94 {INR} Normal [facility] Comment on above: Performed By: #### P T, PTT #### [facility] [address] [place] [address] [address] Zohaib Nichole INR GUIDELINES SEE BELOW Normal [facility] Comment on above: Result Comment: JORJE RED INR: 2.0 - 3.0 CONDITIONS NOT LISTED BELOW 2.5 - 3.5 FOR PROSTHETIC HEART VALVE REPLACEMENT 2.5 - 3.5 RECURRENT THROMBOSIS Performed By: #### P T, PTT #### [facility] [address] [place] [address] Dr. Zohaib Nichole PT Coag (PPP) [Time] 10.2 s Normal 9.0-11.6 [facility] Comment on above: Performed By: #### P T, PTT #### [facility] [address] [place] [address] Dr. Zohaib Nichole PTTon 08-02-2022 aPTT Coag (Bld) [Time] 26.1 s Normal 22.3-36.2 [facility] Comment on above: Performed By: #### P T, PTT #### [facility] [address] [place] [address] Dr. Zohaib Nichole TSHon 08-02-2022 TSH 1.359 uIU/mL Normal 0.358-3.740 [facility] Comment on above: Performed By: #### T SH, PREGQNT #### [facility] [address] [place] [address] Dr. Zohaib Nichole US PELVIS AND TRANSVAGon [...] JASSI ROSARIO Date: 2022-08-02 17:29 Normal [facility] VC ENDOVENOUS ABL 1ST V RTon 07-30-2022 VC ENDOVENOUS ABL 1ST V RT Patient: TESS HANDLEY Exam Date: 07/30/2022 : 1985 Gender:F Ordering : DR JASSI ROSARIO M.D. Admission #: [id number] Family : Order #: [id number] CLICK HERE TO VIEW EXAM RADIOLOGY REPORT [...] Andrade M.D. on 07/30/2022 at 13:13 Normal [facility] VC CONSULT FOLLOWUPon 2021 VC CONSULT FOLLOWUP Patient: LANNY HANDLEY Exam Date: 07/10/2022 : 1985 Gender:F Ordering : DR JASSI ROSARIO M.D. Admission #: [id number] Family : Order #: [id number] CLICK HERE TO VIEW EXAM RADIOLOGY REPORT [...] Rosario MD on 07/10/2022 at 14:49 Normal [facility] VC EXT VENOUS LT LIMITEDon 0 07-10-2022 VC EXT VENOUS LT LIMITED Patient: TESS HANDLEY. Exam Date: 07/10/2022 : 1985 Gender:F Ordering : DR JASSI ROSARIO M.D. Admission #: [id number] Family : Order #: [id number] CLICK HERE TO VIEW EXAM RADIOLOGY REPORT [...] Rosario MD on 07/10/2022 at 14:26 Normal [facility] VC ENDOVENOUS ABL 1ST V LTon 07-05-2022 VC ENDOVENOUS ABL 1ST V LT Patient: TESS HANDLEY. Exam Date: 07/05/2022 : 1985 Gender:F Ordering : DR JASSI ROSARIO M.D. Admission #: [id number] Family : Order #: [id number] CLICK HERE TO VIEW EXAM RADIOLOGY REPORT [...] Jassi Rosario MD on 07/05/2022 at 11:44 Normal [facility] VC COMP CONSULTATIONon 02-22 VC COMP CONSULTATION Patient: TESS HANDLEY Exam Date: 02/22/2022 : 1985 Gender:F Ordering : DR JASSI ROSARIO M.D. Admission #: [id number] Family : Order #: [id number] CLICK HERE TO VIEW EXAM RADIOLOGY REPORT [...] is significant for tonsillectomy and adenoidectomy in 2013. The patient is on no prescription medications. [...] Rosario MD on 02/22/2022 at 10:27 Normal [facility] VC VENOUS REFLUX JINNY LMTon 0 02-22-2022 VC VENOUS REFLUX JINNY LMT Patient: TESS HANDLEY Exam Date: 02/22/2022 : 1985 Gender:F Ordering : DR JASSI ROSARIO M.D. Admission #: [id number] Family : Order #: [id number] CLICK HERE TO VIEW EXAM RADIOLOGY REPORT [...] thrombus. Compressibility: Normal. Flow: Deep venous reflux. Field Administrative Assistant: Dist/med calf perf 4.7 mm. Dist/med calf [...] MD on 02/22/2022 at 09:36 Normal [facility] Office Visiton 06-20-2018 Office Visit History of Present IllnessMs Enedr is a 29 yo at 29w4d of [...] By: Yohana Simeon; 06/19/2018 3:54:45 PM TABS;Therapy: (Recorded:19Jun2018) to Recorded Dispense: 0 Days ; #: Sufficient TABS; Refill: 0; ROBERT = N; Record; Last Updated By: Yohana Simeon; 06/19/2018 3:54:45 PM Stool Softener CAPS;Therapy: (Recorded:19Jun2018) to Recorded Dispense: 0 Days ; #: Sufficient CAPS; Refill: 0; ROBERT = N; Record; Last Updated By: Yohana Simeon; 06/19/2018 3:54:45 PM Vitals Vital Signs Recorded: 19Jun2018 03:65XHIukijjbc333Jjnozy qfw47Ssblur5 ft 1 snJvzjva030 lb BMI Wwoxrmccdr64.8BSA Calculated1.73 Provider ImpressionsMs Wott is a 29 yo at 29w4d of [...] and perform ultrasound studies weekly at our [place] office. She will see Dr. Cabrera for her visits. If delivery is needed prior to 35 weeks, she will be delivered at [facility] due to NICU restrictions at the [facility].Lastly, antiphospholipid syndrome may cause recurrent adverse outcome.I recommend an APS panel including LAC, and IGG/IGM anticardiolipin antibodies, and IGG/IGM beta2-glycoprotein antibodies. This was not drawn today. All questions were addressed. Patient and her express understanding. 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 Facility:[facility] Start: 09-17-2022 End: 09-17-[address] LACIE CABRERA . Facility:[facility] Start: 09-15-2022 Encounter for preprocedural laboratory examination DR LACIE CABRERA . [facility] Start: 09-11-2022 End: 09-12-[address] LACIE CABRERA . Facility:[facility] Start: 09-11-2022 End: 09-12-2022 Encounter for preprocedural laboratory examination DR LACIE CABRERA . Facility:[facility] Start: 08-22-2022 End: 08-23-2022 ambulatory Jassi Rosario Facility:[facility] Start: 08-15-[address] JASSI PEREZ Facilit y:[facility] Start: 08-14-2022 End: 08-15-2022 ambulatory Jassi Rosario Facility:[facility] Start: 08-07-2022 End: 08-08-2022 ambulatory Jassi Rosario Facility:[facility] Start: 08-06-2022 Encounter for genera l adult medical examination without abnormal findings DR LACIE CABRERA . [facility] Start: 08-03-2022 End: 08-04-2022 ambulatory Jassi Rosario Facility:[facility] Start: 08-02-2022 End: 08-03-2022 ambulatory Jassi Rosario Facility:[facility] Start: 08-02-2022 End: 08-03-2022 Encounter for general adult medical examination without abnormal findings Jassi Rosario Facility:[facility] Start: 07-30-2022 End: 07-31-2022 ambulatory Jassi Rosario Facility:[facility] Start: 07-10-2022 End: 07-11-2022 ambulatory Jassi Rosario Facility:[facility] Start: 07-05-2022 End: 07-06-2022 ambulatory Jassi Rosario Facility:[facility] Start: 02-22-2022 End: 02-23-2022 ambulatory Jassi Rosario Facility:[facility] Start: 07-31-2018 Patient encounter Adrian bernal:[facility] Alberto Melo Start: 07-28-2018 End: 07-29-2018 Patient encounter DEFAULT PHYSICIAN Facility:[facility] Start: 07-24-2018 Patient encounter Adrian Bermudez lity:[facility] Alberto Melo Start: 07-10-2018 Patient encounter Adrian Bermudez lity:[facility] Alberto Melo Start: 07-03-2018 Patient encounter Devora mccarthy Facility:[facility] Alberto Melo Start: 06-26-2018 Patient encounter Devora Lord n Facility:[facility] Alberto Melo Start: 06-19-2018 Patient encounter Devora Lord n Facility:[facility] Plan of Treatment Date Care Activity Detail Author Start: 12-10-2024 End: 12-10-2024 Patient encounter procedure 12/10/2024 10:00 AM EST Office Visit [facility] [address] [place] [id number] Lacie Cabrera DO [address] [place] [address] Arrived [facility] Comment on above: Arrived Payers Date Payer Category Payer Medicaid [place] [id number] 2023 Unknown [id number] 1984 Unknown [id number] 2.16.840.1.284629.3.579.2.647 1984 Unknown [id number] 2.16.840.1.614167.3.579.2.356 1984 Unknown [id number] 2.16.840.1.949111.3.579.2.356 1984 Unknown [id number] 2.16.840.1.842961.3.579.2.356 1984 Unknown [id number] 2.16.840.1.427634.3.579.2.356 1984 Unknown [id number] 2.16.840.1.210788.3.579.2.356 1984 Unknown [id number] 2.16.840.1.887478.3.579.2.356 1984 Unknown [id number] 2.16.840.1.329945.3.579.2.593 1984 Unknown [id number] 2.16.840.1.241153.3.579.2.593 1984 Unknown [id number] 2.16.840.1.034879.3.579.2.593 1984 Unknown [id number] 2.16.840.1.825991.3.579.2.593 1984 Unknown [id number] 2.16.840.1.358381.3.579.2.593 1984 Unknown [id number] 2.16.840.1.970591.3.579.2.593 1984 Unknown [id number] 2.16.840.1.200562.3.579.2.593 1984 Unknown [id number] 2.16.840.1.334799.3.579.2.593 1984 Unknown [id number] 2.16.840.1.329938.3.579.2.593 1984 Unknown [id number] 2.16.840.1.603402.3.579.2.593 1984 Unknown [id number] 2.16.840.1.906110.3.579.2.593 1984 Unknown [id number] 2.16.840.1.073741.3.579.2.593 1984 Unknown [id number] 2.16.840.1.680401.3.579.2.593 1984 Unknown [id number] 2.16.840.1.108284.3.579.2.125 9 1984 Unknown [id number] 2.16.840.1.210230.3.579.2.125 9 1984 Unknown [id number] 2.16.840.1.211882.3.579.2.125 9 1959 Self-pay [id number] 1959 Unknown [id number] 1959 Unknown [id number] Unknown Social History Date Type Detail Facility Start: 09-04-2023 Tobacco smoking stat [facility] Never smoked tobacco [facility] Start: 12-05-2023 Alcoholic beverage intake Life time non-drinker (finding) [facility] Start: 09-04-2023 History of Social function [facility] Start: 09-04-2023 Tobacco use panel [facility] Start: 1985 Sex assigned at Female [facility] Start: 10-24-2023 Gender identity Identifies as female gender (finding) [facility] Start: 10-24-2023 Sexual orientation Heterosexual (fin ding) [facility] Clinical Note 09-17-2022 Note Date & Type Note Facility 09-17-2022 Note OPERATIVE NOTE OPERATION DATE: 09/17/2022 PROCEDURE: vNOTES assisted hysterectomy. PREOPERATIVE DIAGNOSIS: Menorrhagia, dysmenorrhea. POSTOPERATIVE DIAGNOSIS: Menorrhagia, dysmenorrhea. ANESTHESIA: General. SURGEON: Lacie Cabrera D.O. HEALTH CARE ATTORNEY: EDWIN Forte URINE OUTPUT: Yellow and clear. [...] Sponge, lap, needle counts correct x2. [facility] Summary Purpose Family History No Family History Records FoundNo Family History Records FoundNo Family History Records FoundNo Family History Records FoundNo Family History Records Found Advance Directives No Advanced Directives Records FoundNo Advanced Directives Records FoundNo Advanced Directives Records FoundNo Advanced Directives Records FoundNo Advanced Directives Records Found Additional Source Comments INFORMATION SOURCE (unrecogn ized section and content) DATE CREATED AUTHOR 06/30/2018 EBIQUOUS DATE CREATED AUTHOR AUTHOR'S ORGANIZ ATION 08/30/2018 [facility] DATE CREATED AUTHOR AUTHOR'S ORGANIZ ATION 09/12/2018 [facility] DATE CREATED AUTHOR AUTHOR'S ORGANIZ ATION 02/19/2023 [facility] DATE CREATED AUTHOR AUTHOR'S ORGANIZ ATION 01/03/2024 [facility] FOR RECORDS PERTAINING TO PATIENTS WHO ARE [...] BE BASED ON THE PRIMARY CLINICAL RECORDS. [facility] [employer] provides no warranty or guarantee of the accuracy or completeness of information in this document.
[2024-12-14 19:07] LABS: Age Gdln ACOG Testing Note (.); HPV Aptima Negative (Negative); IGP, Aptima HPV, rfx 16/18,45 Note (.)
== END 2024-12-10 15:05 | disposition home or self-care (01) ==
LOC: LAB 15:04
PROVIDERS: Visit Provider Obstetrics & Gynecology
DX: Z01.419 Encounter for gynecological examination (general) (routine) without abnormal findings (principal)
CPT/HCPCS: 87624; 88175